=== PATIENT | female | born 1985 | race Caucasian/White ===

== ENCOUNTER 2016-03-06 02:59 | Inpatient (IN) | payer BC ==
[~2016-03-06] VITALS: Ht 165.1 cm; Wt 83.6 kg
[2016-03-16] MEDS ORDERED: OXYCODONE/ACETAMINOPHEN 5-325 TAB PO PRN (23:15)
[2016-03-16] MEDS ORDERED: BENZOCAINE 20% AER SPR 82.5 GM CAN EXT PRN (23:15)
[2016-03-16] MEDS ORDERED: LANOLIN OINT EXT PRN ×2 (23:15)
[2016-03-16] MEDS ORDERED: OXYTOCIN INJ 10 UNITS/ML VIAL IM ONE (23:15)
[2016-03-16] MEDS ORDERED: HYDROCORTISONE ACETATE 25 MG SUPP PR PRN (23:15)
[2016-03-16] MEDS ORDERED: SUPERCREAM 0.870 % 15GM JAR EXT PRN (23:15)
[2016-03-16] MEDS ORDERED: ACETAMINOPHEN/CODEINE 300/30MG TAB PO PRN (23:15)
[2016-03-16] MEDS ORDERED: DIPHTHERIA/TETANUS/PERTUSSIS 0.5 ML SYR/VIAL IM. ONE (23:15)
[2016-03-16 23:18] VITALS: Ht 165.1 cm; Wt 83.6 kg
[2016-03-16] MEDS: IBUPROFEN 600 MG TAB PO PRN (23:19)
--- NOTE | 2016-03-17 01:10 | HISTORY & PHYSICAL EXAMINATION ---
DATE OF ADMISSION: 03/16/2016 CHIEF COMPLAINT: Contractions. HISTORY OF PRESENT ILLNESS: The patient is a 31-year-old 2, para 1, at 41 weeks and 3 days gestation, who presented to labor and delivery in active labor. She stated that her contractions began around 4:00 p.m. and progressively increased in intensity and frequency. She ruptured her membranes at 10:30 p.m. On arrival to labor and delivery, she was completely dilated, 100% effaced and 0 station. Her care has been uncomplicated. She is GBS negative. PAST MEDICAL HISTORY: Significant for 1 spontaneous vaginal delivery in May of 2012. PAST SURGICAL HISTORY: She had dental surgery. SOCIAL HISTORY: She denies tobacco, alcohol or drug use. MEDICATIONS: vitamins. ALLERGIES: No known drug allergies. LABS: Blood type is O positive, group B strep negative, rubella immune, hepatitis B surface antigen negative, RPR nonreactive. PHYSICAL EXAMINATION: VITAL SIGNS: Blood pressure is 128/79, heart rate of 77, respiration rate of 18, temperature of 97.6. GENERAL: The patient is awake, alert and oriented x3. She is in [id number] distress due to being in active labor. HEART: Regular rate and rhythm. LUNGS: Clear to auscultation bilaterally. ABDOMEN: A gravid uterus, appropriate for gestational age. EXTREMITIES: No clubbing, cyanosis or calf tenderness. VAGINAL EXAM: She is completely dilated, 100% effaced and 0 station. ASSESSMENT AND PLAN: A 31-year-old 2, para 1, at 41 weeks and 3 days gestation, will be admitted to labor and delivery for active labor and with a precipitous delivery. Please see the delivery note.
[2016-03-17 01:45] VITALS: BP 132/75; PULSE 74; TEMP 36.8; O2SAT 96
[2016-03-17 06:28] LABS: HEMATOCRIT 31.6 % (37-47)
[2016-03-17] MEDS: DOCUSATE SODIUM 100 MG CAP PO SCH ×2 (07:27→19:50)
[2016-03-17] MEDS: PRENATAL VITAMIN TAB PO SCH (07:27)
[2016-03-17] MEDS: IBUPROFEN 600 MG TAB PO PRN ×2 (07:29→16:37)
--- NOTE | 2016-03-17 07:33 | DELIVERY SUMMARY ---
DATE OF OPERATION: 03/16/2016 TIME OF DELIVERY: 2248. DELIVERY OF PLACENTA: 2251. DELIVERY NOTE: The patient is a 31-year-old 2, para 1, at 41 weeks and 3 days gestation, who was admitted to labor and delivery for active labor. On arrival, she was completely dilated and with the urge to push. As I arrived into the room, baby's head was . The baby's head was delivered. Nuchal cord x1 was reduced. Baby was then delivered and placed on the patient's abdomen. Cord was clamped x2 and cut. Apgars were 8 at 1 minute and 9 at 5 minutes. Weight is pending. Please see nursing notes for further baby assessment. Cord blood was then obtained. An intact placenta with 3-vessel cord was delivered at 2251. She was given 10 units of Pitocin IM. The lower uterine segment and vagina was cleared of any blood clots and debris. Exploration of the perineum noted a first-degree vaginal laceration, which was injected with lidocaine for local anesthesia and was repaired with 2-0 Vicryl in a continuous running fashion. Excellent hemostasis was noted. No other lacerations were seen. Estimated blood loss was 250 mL. All sponge and instrument counts found to be correct x2. Both patient and baby tolerated the delivery well and were in recovery with stable vital signs. I attest to the content of the Intraoperative Record and any orders documented therein. Any exceptions are noted below. MTDD
[2016-03-17] MEDS: FERROUS SULFATE 325 MG TAB PO SCH (08:00)
[2016-03-17 08:29] VITALS: BP 118/73; PULSE 67; TEMP 36.5
--- NOTE | 2016-03-17 08:42 | OB/GYN Progress Note ---
[employer] Progress Note Date of Service: Mar 17, 2016. Patient is seen and examined. She feels well, no complaints. Ambulating without dizziness Voiding without difficulty Tolerating regular diet with out N&V Bleeding is minimal No fever/ chills/ CP/ SOB/ N&V/ Leg pain Breast feeding without problems Date Time Temp Pulse Resp B/P Pulse Ox O2 Delivery O2 Flow Rate FiO2 03/17/16 08:29 36.5 67 20 118/73 Room Air 03/17/16 07:50 Room Air 03/17/16 01:45 36.8 74 16 132/75 96 Room Air 03/17/16 01:45 Room Air Last 24 Hours Test 03/17/16 06:13 Hemoglobin 10.6 g/dL Hematocrit 31.6 % PE: General: Alert, orientedx3, NAD Abd: soft, NT, fundus firm, below Umbilicus Perineum intact, Lochia rubra minimal Ext; NT, no edema AP: 31 yo s/p , ppd# 1 VSS Afebrile doing well Continue routine care All questions were answered D/C home tomorrow
[2016-03-17 11:25] VITALS: BP 126/75; PULSE 93; TEMP 36.4
[2016-03-17 15:15] VITALS: BP 104/63; PULSE 83; TEMP 36.8
[2016-03-17 18:58] VITALS: BP 118/78; PULSE 93; TEMP 36.6
[2016-03-17] MEDS ORDERED: BISACODYL 5 MG TABEC PO SCH (20:00)
[2016-03-17 23:10] VITALS: BP 108/69; PULSE 70; TEMP 36.8; O2SAT 96
[2016-03-18] MEDS: IBUPROFEN 600 MG TAB PO PRN (05:33)
[2016-03-18] MEDS ORDERED: BISACODYL 10 MG SUPP PR PRN (07:00)
[2016-03-18 07:30] VITALS: BP 117/75; PULSE 82; TEMP 36.5; O2SAT 98
[2016-03-18 07:54] LABS: HEMATOCRIT 33.7 % (37-47); MEAN CELL VOLUME 88.9 fL (80-100); MEAN CORPUSCULAR HEMOGLOBIN 29.6 pg (25-34); MEAN CORPUSCULAR HGB CONC 33.2 g/dl (32-36); MEAN PLATELET VOLUME 10.5 fL (7.4-10.4); PLATELET COUNT 181 K/uL (130-400); RED BLOOD COUNT 3.79 M/uL (4.2-5.4); WHITE BLOOD COUNT 10.11 K/uL (4.8-10.8)
[2016-03-18] MEDS: DOCUSATE SODIUM 100 MG CAP PO SCH (08:35)
[2016-03-18] MEDS: FERROUS SULFATE 325 MG TAB PO SCH (08:35)
[2016-03-18] MEDS: PRENATAL VITAMIN TAB PO SCH (08:35)
--- NOTE | 2016-03-18 10:20 | OB/GYN Progress Note ---
[employer] Progress Note Date of Service: Mar 18, 2016. Patient is seen and examined. She feels well, no complaints. Ambulating without dizziness Voiding without difficulty Tolerating regular diet with out N&V Bleeding is minimal No fever/ chills/ CP/ SOB/ N&V/ Leg pain Breast feeding without problems Discussed contraception with patient in details. They are thinking about vasectomy, Discussed LARC methods like IUD's, Mirena and Paragard. Date Time Temp Pulse Resp B/P Pulse Ox O2 Delivery O2 Flow Rate FiO2 03/18/16 07:30 98 Room Air 03/18/16 07:30 36.5 82 18 117/75 98 Room Air 03/17/16 23:10 36.8 70 18 108/69 96 Room Air 03/17/16 23:10 96 Room Air 03/17/16 18:58 36.6 93 20 118/78 Room Air 03/17/16 15:15 Room Air 03/17/16 15:15 36.8 83 20 104/63 Room Air 03/17/16 11:25 36.4 93 20 126/75 Room Air Last 24 Hours Test 03/18/16 07:35 White Blood Count 10.11 K/uL Red Blood Count 3.79 M/uL Hemoglobin 11.2 g/dL Hematocrit 33.7 % Mean Corpuscular Volume 88.9 fL Mean Corpuscular Hemoglobin 29.6 pg Mean Corpuscular Hemoglobin Concent 33.2 g/dl RDW Standard Deviation 43.9 fL RDW Coefficient of Variation 13.5 % Platelet Count 181 K/uL Mean Platelet Volume 10.5 fL PE: General: Alert, orientedx3, NAD Abd: soft, NT, fundus firm, below Umbilicus Perineum intact, Lochia rubra minimal Ext; NT, no edema AP: 31 yo s/p , ppd# 2 VSS Afebrile doing well Continue routine care All questions were answered Instructions are given when to call D/C home , f/u in office
[2016-03-18] MEDS ORDERED: PRENTAB26 PO (10:21)
--- NOTE | 2016-03-18 10:21 | Discharge Instructions ---
Discharge Instructions Admission Reason for Admission: LABOR Discharge Discharge Diagnosis / Problem: Discharge Goals Goal(s): Routine recovery after delivery Medications Continue Dispensed Medications: supercream, dermaplast, lansinoh Activity Recommendations Activity Limitations: as noted below Lifting Limitations: gradually increase as tolerated Exercise/Sports Limitations: until after follow-up appointment May Resume Sexual Activity: after follow-up appointment Shower/Bathe: no limitations Driving or Machine Use: ACTIVITY RECOMMENDATIONS: * Gradual return to full activity over the next 2-3 weeks. * No lifting - nothing heavier than baby over the next 2-3 weeks. * Do not engage in vigorous exercise, sexual activity or sports until cleared by your physician. * Do not drive or operate any motorized equipment until cleared by your physician. * You may shower/bathe daily. BREAST CARE: If you are not breast feeding: * Wear a supportive bra 24 hours a day for one to two weeks. * Avoid stimulating your breasts and nipples as much as possible during the first few weeks after delivery. * When taking a shower, have the warm water hit your back, not breasts. * When your breasts feel full, apply ice packs. Usually three to four times a day helps ease the discomfort. * Take a mild pain medication (Tylenol/Motrin) when you are uncomfortable. If breast feeding: * Use breast milk to lubricate nipples. Lansinoh cream may be used for sore nipples. You do not need to remove cream prior to breast feeding. If using a different brand of cream, check the label for directions regarding removal of cream prior to nursing. * Wear a supportive bra. * If having problems with breasts or breast feeding, call a analytics consultant or your health care provider. EPISIOTOMY CARE: After delivery, if you have an episiotomy (stitches), the following steps will ease discomfort and aid healing. * For the first 24 hours after delivery, place ice packs next to your episiotomy to help reduce swelling. * After the first 24 hour-period, sitz baths, either portable or in the tub, are suggested. A shower with a shower arm sprayed over the episiotomy may be comforting. * Lucille care should be done after each voiding and bowel movement. Squirt warm water from a plastic bottle over the perineum (region of the body between the anus and urinary opening) and pat dry. * Use Dermoplast to ease discomfort. Shake container. Plessis directly over the episiotomy. * Place a Tucks on a clean sanitary pad next to your episiotomy. OVER THE COUNTER MEDICATION: * For discomfort or pain, you may use Acetaminophen (Tylenol), Ibuprofen (Advil ), or Naproxen (Aleve) following the package directions. * For constipation you may use Colace following the package directions. SPECIAL CARE INSTRUCTIONS: When you are discharged from the hospital, it is important for you to follow the instructions listed below: * During the first week at home, you should be able to care for yourself and your baby. In addition, the usual light household activities are encouraged. * Limit your activities to the way you feel. Do not try to clean the house or move furniture. Be sensible. * If you actively engage in sports and have done so up until the time of your delivery, you may resume these activities as soon as you feel able. This may take up to one month or even longer. Use good judgment. * Continue to take your vitamins for at least six weeks after the of your baby. * Your diet need not be limited unless you were on a special diet before your delivery. Breast-feeding mothers need around 2500 calories per day and at least 64-80 ounces of fluid per day (8 to 10 glasses). * You should eat foods from the four major food groups. Crash diets or fad diets are to be avoided. Eating lean meats, fresh fruits and vegetables, low-fat dairy products, high fiber foods and a regular exercise program, will help you get back to your pre- weight without putting your health at risk. * Constipation is sometimes a problem after delivery. Take a mild laxative as needed. If breast feeding, Milk of Magnesia is acceptable to use. You may use a suppository or Fleets enema if no episiotomy. * A daily shower or tub bath is suggested. Be sure to thoroughly and gently dry the perineum. * A bloody vaginal discharge will usually continue until around four weeks post . A small amount of bleeding may continue for as long as six weeks. Vaginal discharge changes from the bright red bleeding after delivery to pink then brownish and finally yellowish-pink before becoming white and disappearing. * Bleeding may increase with activity. Your first period may come in 4-8 weeks. If you are breast feeding, your period may be delayed even longer. * [place] (sex) can begin whenever both you and your partner feel comfortable and do not have any form of genital infection. It is recommended that you wait until after your return appointment and discuss with your physician. If you have questions, please talk to your health care practitioner. A condom should be used to prevent infection and . * Foreplay, gentle intercourse and lubrication is very important the first several times to prevent pain. A water-based lubricant such as K-Y jelly or Astroglide may be used. * Tampons may be used six weeks after delivery. * Douching should be avoided for 6 weeks after delivery. * If you have RH negative blood and your baby is RH positive, you will receive RHOGAM by injection prior to discharge. The nurse will give you a card to keep with you that has the date and place that you received RHOGAM after delivery. * During your care, you had a Rubella screen done to check for the presence of rubella antibodies in your blood. If your test was negative, you will receive a Rubella vaccine prior to discharge. This vaccine may cause a fever, soreness at the injection site and flu-like symptoms. If these symptoms persist, notify your health care practitioner. is not advised for three months after a Rubella vaccine. There is a higher chance of having a baby with defects if conceived within three months of getting the vaccine. * If you were discharged 24 hours from delivery or before 48 hours: Visiting nurses will come to your home 48 hours after discharge to assess you and your baby. The visiting nurse will meet with you while you are in the hospital to arrange a time and get directions to your home. * Verbalizes understanding of car seat law as reviewed with patient nursing. * Car Seat hand-out given and reviewed with patient by nursing. * Shaken baby information reviewed with patient by nursing. Call you doctor if: * Heavy bleeding (saturating several pads an hour) or passing clots the size of your fist. * A fever >101 degrees F (38.3 degrees C) on two occasions four hours apart and/or chills. * Unusual pain in the pelvic or vaginal areas. * "Baby Blues" lasting longer than two weeks. If you have any questions or concerns, call your health care practitioner at . FOLLOW-UP VISIT: * Please call the office at to schedule a 6 week examination. It is important you keep this appointment. * It is important for you to make arrangements for either yearly or twice yearly check-ups thereafter. . Current Hospital Diet Patient's current hospital diet: Regular OB Diet Discharge Diet Recommended Diet: Regular Diet Pending Studies Studies pending at discharge: no Medical Emergencies . Who to Call and When: Medical Emergencies: If at any time you feel your situation is an emergency, please call 911 immediately. . Non-Emergent Contact Non-Emergency issues call your: Surgeon Call Non-Emergent contact if: you have a fever, temperature is above 100.5, your pain is not controlled, your pain is worsening, wound has increased drainage, wound has increased redness . . "Provider Documentation" section prepared by [place]. VTE Core Measure Inpt VTE Proph given/why not?: Treatment not indicated
[2016-03-18 11:17] VITALS: BP_DIAS 75; PULSE 82; TEMP 36.5
== END 2016-03-18 11:30 | disposition home or self-care (01) | DRG 775 ==
LOC: C.LD 03-16 22:49 → C.OBG 03-17 01:49
PROVIDERS: ADMIT Obstetrics & Gynecology; ATTEND Obstetrics & Gynecology
PROC: 0HQ9XZZ Repair Perineum Skin, External Approach (ICD-10-PCS; principal; 2016-03-16)
PROC: 10E0XZZ Delivery of Products of Conception, External Approach (ICD-10-PCS; principal; 2016-03-16)
DX: O69.81X0 Labor and delivery complicated by cord around neck, without compression, not applicable or unspecified (principal); O70.0 First degree perineal laceration during delivery; Z37.0 Single live birth; Z3A.41 41 weeks gestation of pregnancy